=== PATIENT | male | born 2005 ===

== ENCOUNTER 2024-04-23 22:34 | Emergency (ER) | payer MEDICAID ==
[~2024-04-23] VITALS: Ht 175.3 cm; Wt 99.6 kg
[2024-04-23 22:35] VITALS: BP 124/75; PULSE 100; TEMP 98.6; O2SAT 99
[2024-04-24] MEDS ORDERED: CEPH-585 PO (01:09)
[2024-04-24] MEDS: cephalexin 250mg capsule PO ONE (01:16)
[2024-04-24] MEDS: TETanus/Pertussis (Acell)/Diphther VAC/PF (Tdap-Adult) 0.5ml syringe IMVAC ONE (01:18)
[2024-04-24 01:20] VITALS: RESP 16
== END 2024-04-24 01:21 | disposition home or self-care (01) ==
LOC: ER 22:35
DX: S06.0X0A Concussion without loss of consciousness, initial encounter (principal); S61.411A Laceration without foreign body of right hand, initial encounter; S60.221A Contusion of right hand, initial encounter; V00.311A Fall from snowboard, initial encounter; Y93.23 Activity, snow (alpine) (downhill) skiing, snowboarding, sledding, tobogganing and snow tubing; Y92.89 Other specified places as the place of occurrence of the external cause; Y99.8 Other external cause status
CPT/HCPCS: 12002; 73130; 90471; 90715; 99283; A6449